=== PATIENT | female | born 1995 | race Caucasian/White ===

== ENCOUNTER 2018-10-08 12:41 | Emergency (ER) | payer OTHER ==
--- NOTE | 2018-10-08 13:02 | CT ---
CT BRAIN WITHOUT CONTRAST: History: Level II Trauma. FINDINGS: No evidence of infarct, hemorrhage, midline shift, or abnormal extraaxial fluid collections are seen. The ventricular size is normal and the basilar cisterns patent. The bony calvarium is intact. Visual ized paranasal sinuses and mastoid air cells are well aerated. IMPRESSION: No CT evidence of acute intracranial process. Findings discussed over the telephone with ER physician, Dr. Yolanda Parkinson at 12:56 p.m. POS: [facility]
--- NOTE | 2018-10-08 13:43 | RAD ---
[facility] elbow 4 views: 10/08/2018 COMPARISON: None HISTORY: Injury, trauma, pain There is no elbow joint effusion, displaced fracture, or evidence of dislocation seen. IMPRESSION: No acute findings.
--- NOTE | 2018-10-08 13:43 | RAD ---
FXR Tib Fib Lt Leg 2 View: 10/08/2018 12:51 PM CLINICAL INDICATION: Trauma, pain COMPARISON: None. FINDINGS: Fracture:No fracture. Arthropathy:None of significance. Incidental findings:None of significance. IMPRESSION: 1. Normal.
== END 2018-10-08 13:57 | disposition home or self-care (01) ==
LOC: ERS 12:41
DX: S09.90XA Unspecified injury of head, initial encounter (principal); S50.02XA Contusion of left elbow, initial encounter; S80.12XA Contusion of left lower leg, initial encounter; F41.9 Anxiety disorder, unspecified; F32.9 Major depressive disorder, single episode, unspecified; Z79.899 Other long term (current) drug therapy; V80.919A Animal-rider injured in unspecified transport accident, initial encounter
CPT/HCPCS: 70450